=== PATIENT | male | born 2005 | race Caucasian/White ===

== ENCOUNTER 2024-08-07 10:04 | Emergency (ER) | payer OTHER ==
[~2024-08-07] VITALS: Ht 190.5 cm; Wt 98.5 kg
[2024-08-07] MEDS: NS (Normal Saline) 0.9% 1,000 ML IV ONE (11:43)
[2024-08-07] MEDS: KETOROLAC 30 MG/ML 1ML VIAL IV ONE (11:43)
[2024-08-07 12:07] LABS: HEMOGLOBIN 14.3 g/dl (13.5-17.5); MEAN CORPUSCULAR HEMOGLOBIN 29.4 pg (27.0-33.0); MEAN CORPUSCULAR VOLUME 86.2 fl (80.0-96.0); PLATELET COUNT, AUTOMATED 103 10^3/uL (150-450); RED BLOOD COUNT 4.87 10^6/uL (4.30-6.10); WHITE BLOOD COUNT 12.1 10^3/uL (4.0-10.0)
[2024-08-07 12:40] LABS: ALBUMIN 3.4 G/DL (3.2-5.2); ALKALINE PHOSPHATASE 116 U/L (40-129); ALT/SGPT 168 U/L (7.0-40); AST/SGOT 53 U/L (<34); BILIRUBIN,TOTAL 0.7 MG/DL (0.3-1.2); BLOOD UREA NITROGEN 14 MG/DL (9-23); C REACTIVE PROTEIN QUANTITATIV 5.81 MG/DL (<1.0); CALCIUM LEVEL 8.5 MG/DL (8.5-10.1); CARBON DIOXIDE LEVEL 29 MMOL/L (20-31); CHLORIDE LEVEL 97 MMOL/L (98-107); CREATININE FOR GFR 0.98 MG/DL (0.70-1.30); GLOMERULAR FILTRATION RATE > 60.0 (>60); GLUCOSE, FASTING 88 MG/DL (60-100); SODIUM LEVEL 137 MMOL/L (136-145); TOTAL PROTEIN 7.9 G/DL (5.7-8.2)
[2024-08-07 12:45] LABS: ERYTHROCYTE SEDIMENTATION RATE 41 mm/hr (0-15)
[2024-08-07] MEDS ORDERED: ISOVUE-370 76% 100ML VIAL As Ordered ONE (12:49)
[2024-08-07 13:06] LABS: ATYPICAL LYMPH 35 % (0-5); LYMPHOCYTES 20 % (16-44); MONO SCRN POSITIVE (NEGATIVE); MONOCYTES 13 % (0-5); NEUTROPHILS 29 % (28-66)
[2024-08-07 13:07] LABS: PLATELET ESTIMATE NORMAL (NORMAL); SMUDGE CELLS 3+
[2024-08-07 14:43] VITALS: BP 122/72; TEMP 97.2; O2SAT 97
== END 2024-08-07 14:57 | disposition home or self-care (01) ==
LOC: M ED 10:04
DX: B27.90 Infectious mononucleosis, unspecified without complication (principal); Z87.891 Personal history of nicotine dependence
CPT/HCPCS: 70491; 80053; 85025; 85652; 86140; 86308; 87486; 87581; 87633; 87798; 87880; 96361; 96374; 99284; J1885; Q9967